=== PATIENT | female | born 1995 ===

== ENCOUNTER → 2019-10-30 | Outpatient (REF) ==
[2019-12-09 06:11] LABS: HERPES ZOSTER, VARICELLA IgG SEE SEPARATE REPORT
[2019-12-09 06:12] LABS: RUBEOLA IgG ANTIBODY SEE SEPARATE REPORT
== END ==
LOC: M LAB 10:31
PROVIDERS: ATTEND Nurse Practitioner Adult Health
DX: Z02.89 Encounter for other administrative examinations (principal)